=== PATIENT | female | born 1965 | race Caucasian/White ===

== ENCOUNTER → 2018-06-24 12:58 | Outpatient (CLI) | payer OTHER, SELFPAY ==
--- NOTE | 2018-06-24 | DI.MG.S_ITS ---
BILATERAL DIGITAL SCREENING MAMMOGRAM 3D/2D WITH CAD: 06/24/2018 CLINICAL: Routine screening. Comparison is made to exams dated: 05/20/2017 mammogram - [facility] and 05/29/2016 mammogram - [facility]. The tissue of both breasts is extremely dense, which lowers the sensitivity of mammography. Current study was also evaluated with a Computer Aided Detection (CAD) system. There are benign calcifications in both breasts. There also is a benign biopsy clip in the left breast. No significant masses, calcifications, or other findings are seen in either breast. There has been no significant interval change. IMPRESSION: There is no mammographic evidence of malignancy. A 1 year screening mammogram is recommended. This exam was interpreted at Station ID: [id number]. NOTE: For mammograms, a report in lay terms will be sent to the patient. Approximately 15% of breast malignancies will not be visualized mammographically. In the management of a palpable breast mass, a negative mammogram must not discourage biopsy of a clinically suspicious lesion. Electronically Signed By: Alexandre owen/franklyn:06/24/2018 16:20:47 letter sent: Normal Exam ACR BI-RADS Category 2: Benign Finding(s) 3342F
== END ==
PROVIDERS: PCP Family Medicine; Visit Provider Family Medicine
DX: Z12.31 Encounter for screening mammogram for malignant neoplasm of breast (principal)
CPT/HCPCS: 77063; 77067

== ENCOUNTER → 2019-02-11 07:37 | Outpatient (CLI) | payer OTHER, SELFPAY ==
--- NOTE | 2019-02-11 | DI.RAD.S_ITS ---
PROCEDURE: XR KNEE LT 3V INDICATIONS: L KNEE PAIN TECHNIQUE: 3 views of the knee were acquired. COMPARISON: None. FINDINGS: Bones: No displaced acute fracture or dislocation is evident involving the osseous structures of the left knee. There is a bony prominence evident along the inferior margin of the patella with sclerosis at the border between this structure and the inferior border of the patella, which may be related to previous injury or represent a prominent enthesophyte or potentially represent an unusual bipartite patella. This is felt to be chronic. There is also a bony prominence evident along the periphery of the distal medial femoral metaphysis. Soft tissues: No joint effusion. No suspicious soft tissue calcifications. IMPRESSION: 1. No acute fractures of the left knee. 2. Bony structure along the inferior margin of the patella could be a potential source for pain. The need for further evaluation utilizing MRI. 3. Possible osteochondroma of the distal medial femoral metaphysis. MRI with contrast is recommended for further evaluation. Dictated by: Jose Martins M.D. on 02/11/2019 at 7:28 Approved by: Jose Martins M.D. on 02/11/2019 at 7:31
== END ==
PROVIDERS: PCP Family Medicine; Visit Provider Physician Assistant Medical
DX: M25.562 Pain in left knee (principal); M23.52 Chronic instability of knee, left knee
CPT/HCPCS: 73562

== ENCOUNTER → 2019-03-15 07:58 | Outpatient (CLI) | payer OTHER, SELFPAY ==
--- NOTE | 2019-03-15 | DI.MRI.S_ITS ---
PROCEDURE: MR KNEE LT WO CON INDICATIONS: Pain in left knee TECHNIQUE: Noncontrast sagittal PD fast spin echo and T2 fast spin echo with fat saturation, sagittal 3-D FLASH with fat saturation; coronal T1 spin echo and PD fast spin echo with fat saturation, and axial PD fast spin echo with fat saturation through the knee. COMPARISON: None. FINDINGS: Image quality: Excellent. Menisci: The medial and lateral menisci demonstrate normal morphology and internal signal. The meniscal root ligaments appear intact. Cruciate ligaments: The anterior and posterior cruciate ligaments appear intact. Medial structures: The medial collateral ligament appears intact. However, there is adjacent soft tissue edema. Semimembranosus tendon appears intact. However there is a large amount of adjacent fluid suggestive of bursitis Visualized portions of the pes anserinus tendons appear normal. No abnormal bursal fluid. Lateral structures: The lateral collateral ligament demonstrates thickening and intrasubstance signal change in keeping with low grade sprain, statistically chronic, although technically age indeterminate. The biceps femoris tendon appears intact. Popliteus tendon grossly unremarkable. Iliotibial band appears intact. Anterior structures: Quadriceps tendon intact. Medial and lateral patellofemoral ligaments intact. There is mild patellar tendinopathy. Prepatellar and superficial infrapatellar subcutaneous edema/fluid. Chronic osseous fragmentation at the inferior patellar pole, potentially from prior remote fracture and or chronic patellar tendinopathy Bones and cartilage: No focal marrow contusion or discrete low signal fracture line. Within the medial compartment, diffuse partial-thickness loss of the femoral and tibial cartilage without focal defect. Within the lateral compartment, articular cartilage appears grossly intact Within the patellofemoral compartment, diffuse partial-thickness loss of the patellar and femoral trochlear cartilage Joint space: No pathologic joint effusion. No Interiano's cyst. No specific evidence of intra-articular loose body. IMPRESSION: Low-grade medial collateral ligament sprain. Semimembranosus bursitis. Patellar tendinopathy with chronic osseous fragmentation at the infrapatellar pole suggestive of prior remote fracture versus chronic sequela of Sinding Mendez-Johannson syndrome. Joint degeneration, most prominent within the medial and patellofemoral compartments Dictated by: Boby Dawkins M.D. on 03/15/2019 at 11:11 Approved by: Boby Dawkins M.D. on 03/15/2019 at 11:19
== END ==
PROVIDERS: Family Provider Family Medicine; PCP Family Medicine; Visit Provider Physician Assistant Medical
DX: M25.562 Pain in left knee (principal); S83.412A Sprain of medial collateral ligament of left knee, initial encounter; M17.12 Unilateral primary osteoarthritis, left knee; M71.562 Other bursitis, not elsewhere classified, left knee
CPT/HCPCS: 73721

== ENCOUNTER → 2019-07-15 09:09 | Outpatient (CLI) | payer OTHER, SELFPAY ==
--- NOTE | 2019-07-15 | DI.MG.S_ITS ---
BILATERAL DIGITAL SCREENING MAMMOGRAM 3D/2D WITH CAD: 07/15/2019 CLINICAL: Routine screening. Comparison is made to exams dated: 06/24/2018 mammogram, 05/20/2017 mammogram - [facility], and 05/29/2016 mammogram - [facility]. The tissue of both breasts is extremely dense, which lowers the sensitivity of mammography. Current study was also evaluated with a Computer Aided Detection (CAD) system. There are benign calcifications in both breasts. There also is a biopsy clip in the left breast. No significant masses, calcifications, or other findings are seen in either breast. There has been no significant interval change. IMPRESSION: There is no mammographic evidence of malignancy. A 1 year screening mammogram is recommended. This exam was interpreted at Station ID: [id number]. NOTE: For mammograms, a report in lay terms will be sent to the patient. Approximately 15% of breast malignancies will not be visualized mammographically. In the management of a palpable breast mass, a negative mammogram must not discourage biopsy of a clinically suspicious lesion. Electronically Signed By: Alexandre owen/franklyn:07/17/2019 08:07:35 letter sent: Normal Exam ACR BI-RADS Category 2: Benign Finding(s) 3342F
== END ==
PROVIDERS: Family Provider Family Medicine; PCP Family Medicine; Referring Provider Family Medicine; Visit Provider Family Medicine
DX: Z12.31 Encounter for screening mammogram for malignant neoplasm of breast (principal)
CPT/HCPCS: 77063; 77067

== ENCOUNTER → 2020-08-01 08:06 | Outpatient (CLI) | payer OTHER, SELFPAY ==
--- NOTE | 2020-08-01 | DI.MG.S_ITS ---
BILATERAL DIGITAL SCREENING MAMMOGRAM 3D/2D WITH CAD: 08/01/2020 CLINICAL: Routine screening. Comparison is made to exams dated: 07/15/2019 mammogram, 06/24/2018 mammogram, and 05/20/2017 mammogram - [facility]. The tissue of both breasts is extremely dense, which lowers the sensitivity of mammography. Current study was also evaluated with a Computer Aided Detection (CAD) system. There are benign calcifications in both breasts. There also is a biopsy clip in the left breast. There is a mole marker on the left breast. No significant masses, calcifications, or other findings are seen in either breast. There has been no significant interval change. IMPRESSION: BENIGN There is no mammographic evidence of malignancy. A 1 year screening mammogram is recommended. This exam was interpreted at Station ID: [id number]. NOTE: For mammograms, a report in lay terms will be sent to the patient. Approximately 15% of breast malignancies will not be visualized mammographically. In the management of a palpable breast mass, a negative mammogram must not discourage biopsy of a clinically suspicious lesion. Electronically Signed By: Hung Acevedo acr/penrad:08/01/2020 09:09:00 letter sent: Normal Exam ACR BI-RADS Category 2: Benign Finding(s) 3342F
== END ==
PROVIDERS: Family Provider Family Medicine; PCP Family Medicine; Referring Provider Family Medicine; Visit Provider Family Medicine
DX: Z12.31 Encounter for screening mammogram for malignant neoplasm of breast (principal)
CPT/HCPCS: 77063; 77067

== ENCOUNTER → 2021-09-26 08:07 | Outpatient (CLI) | payer OTHER, SELFPAY ==
--- NOTE | 2021-09-26 | DI.MG.S_ITS ---
BILATERAL DIGITAL SCREENING MAMMOGRAM 3D/2D WITH CAD: 09/26/2021 CLINICAL: Routine screening. Comparison is made to exams dated: 08/01/2020 mammogram, 07/15/2019 mammogram, and 06/24/2018 mammogram - [facility]. The tissue of both breasts is extremely dense, which lowers the sensitivity of mammography. Current study was also evaluated with a Computer Aided Detection (CAD) system. There are benign calcifications in both breasts. There also is a biopsy clip in the left breast. There is a mole marker on the left breast. No significant masses, calcifications, or other findings are seen in either breast. There has been no significant interval change. IMPRESSION: BENIGN There is no mammographic evidence of malignancy. A 1 year screening mammogram is recommended. This exam was interpreted at Station ID: [id number]. NOTE: For mammograms, a report in lay terms will be sent to the patient. Approximately 15% of breast malignancies will not be visualized mammographically. In the management of a palpable breast mass, a negative mammogram must not discourage biopsy of a clinically suspicious lesion. Electronically Signed By: Prem lux/franklyn:09/26/2021 09:43:20 letter sent: Normal Exam ACR BI-RADS Category 2: Benign Finding(s) 3342F
== END ==
PROVIDERS: Family Provider Family Medicine; PCP Family Medicine; Referring Provider Family Medicine; Visit Provider Family Medicine
DX: Z12.31 Encounter for screening mammogram for malignant neoplasm of breast (principal)
CPT/HCPCS: 77063; 77067

== ENCOUNTER → 2022-10-10 07:51 | Outpatient (CLI) | payer OTHER, SELFPAY ==
--- NOTE | 2022-10-10 07:55 | DI.MG.S_ITS ---
BILATERAL DIGITAL SCREENING MAMMOGRAM 3D/2D WITH CAD: 10/10/2022 CLINICAL: Routine screening. Comparison is made to exams dated: 09/26/2021 mammogram, 08/01/2020 mammogram, and 07/15/2019 mammogram - [facility]. Both breasts are extremely dense, which lowers the sensitivity of mammography (category d />75% glandular tissue). Current study was also evaluated with a Computer Aided Detection (CAD) system. There are benign calcifications in both breasts. There also is a biopsy clip in the left breast. No significant masses, calcifications, or other findings are seen in either breast. There has been no significant interval change. IMPRESSION: BENIGN There is no mammographic evidence of malignancy. A 1 year screening mammogram is recommended. Based on the Tyrer Cuzick model (a risk assessment model) the patient's lifetime risk is 17.6% and her 10 year risk is 6.3%. According to the ACR, ACS, and NCCN guidelines, an annual breast MRI exam along with mammogram is recommended if the patient's lifetime risk is 20% or greater. This exam was interpreted at Station ID: [id number]. NOTE: For mammograms, a report in lay terms will be sent to the patient. Approximately 15% of breast malignancies will not be visualized mammographically. In the management of a palpable breast mass, a negative mammogram must not discourage biopsy of a clinically suspicious lesion. Electronically Signed By: Alexandre owen/franklyn:10/12/2022 07:48:12 letter sent: Normal Exam ACR BI-RADS Category 2: Benign Finding(s) 3342F
--- NOTE | 2022-10-10 07:56 | DI.RAD.S_ITS ---
PROCEDURE: XR KNEE RT 3V INDICATIONS: RIGHT KNEE PAIN TECHNIQUE: 3 views of the knee were acquired. COMPARISON: [facility], CR, XR KNEE LT 3V, 02/11/2019, 7:41. FINDINGS: Bones: Moderate to severe patellofemoral compartment narrowing. Significant lateral patellar subluxation is present. Mild lateral and medial compartment narrowing. Small periarticular osteophytes are present most notably medially. Areas of calcification are noted overlying the joint space which may represent loose bodies. No discrete erosions. Soft tissues: Minimal joint effusion. No suspicious soft tissue calcifications. IMPRESSION: Tricompartmental arthritic change most severe in the patellofemoral compartment. Dictated by: Shikha Barton M.D. on 10/10/2022 at 9:00 Approved by: Shikha Barton M.D. on 10/10/2022 at 9:00
== END ==
PROVIDERS: Family Provider Family Medicine; PCP Family Medicine; Referring Provider Family Medicine; Visit Provider Family Medicine
DX: Z12.31 Encounter for screening mammogram for malignant neoplasm of breast (principal)
CPT/HCPCS: 73562; 77063; 77067

== ENCOUNTER → 2023-01-15 08:47 | Outpatient (CLI) | payer OTHER, SELFPAY ==
[2023-01-15 10:11] LABS: Appearance Urine UA CLEAR; Bilirubin Urine UA NEGATIVE (NEGATIVE); Color Urine UA YELLOW; Glucose Urine UA NEGATIVE (Negative); Ketones Urine UA NEGATIVE (NEGATIVE); Leukocyte Esterase Urine UA NEGATIVE (NEGATIVE); Nitrite Urine UA NEGATIVE (Negative); Occult Blood Urine UA NEGATIVE (Negative); Protein Urine UA NEGATIVE (Negative); Specific Gravity Urine UA <=1.005 (1.000-1.035); Urobilinogen Urine UA 0.2 E.U./dL (0.2); pH Urine UA 5.5 (4.5-8.0)
[2023-01-15 10:14] LABS: Bacteria Urine None Seen; Culture Indicated Urine Cult Not Indicated; RBC Urine None Seen (0-5/HPF); Squamous Epithelial Cell Urine None Seen (0-5/HPF); Urine Comments Microscopic Normal; WBC Urine None Seen (0-5/HPF)
[2023-01-15 10:16] LABS: Add Manual Diff / Slide Review NO; Basophils Absolute Auto 0 /uL (0-100); Basophils Percent Auto 0.6 % (0-2); Eosinophils Absolute Auto 100 /uL (0-450); Eosinophils Percent Auto 1.6 % (2-4); Hematocrit 39.9 % (36-46); Hemoglobin 13.9 g/dL (12.0-16.0); Lymphocytes Absolute Auto 2800 /uL (1100-4500); Lymphocytes Percent Auto 49.9 % (25-40); Mean Corpuscular HGB Conc 34.9 % (30-36); Mean Corpuscular Hemoglobin 31.1 PG (26-34); Mean Corpuscular Volume 89.2 fL (80-100); Monocytes Absolute Auto 400 /uL (0-900); Neutrophils Absolute Auto 2300 /uL (1500-7000); Neutrophils Percent Auto 40.9 % (50-75); Platelet Count 245 X10^3/uL (150-400); Red Blood Cell Count 4.47 X10^6/uL (4.0-5.2); Red Cell Distribution Width 12.8 % (11.6-14.8); White Blood Cell Count 5.7 X10^3/uL (4.5-11.0)
[2023-01-15 10:35] LABS: BUN Creatinine Ratio 13.9 (6-22); Blood Urea Nitrogen 10 mg/dL (7-17); Calcium 9.4 mg/dL (8.4-10.2); Carbon Dioxide 29 mmol/L (22-32); Chloride 102 mmol/L (98-107); Estimated Glomerular Filt Rate > 60 mL/min (>60); Glucose 85 mg/dL (70-100); HEMOLYSIS < 15 (0-50); Potassium 4.1 mmol/L (3.4-5.1); Sodium 138 mmol/L (137-145)
[2023-01-16 04:12] LABS: Labcorp Hemoglobin (Hb) A1c 5.4 % (4.8-5.6)
== END ==
PROVIDERS: Family Provider Family Medicine; PCP Family Medicine; Referring Provider Orthopaedic Surgery; Visit Provider Orthopaedic Surgery
DX: Z01.818 Encounter for other preprocedural examination (principal); Z01.812 Encounter for preprocedural laboratory examination; R73.9 Hyperglycemia, unspecified; N39.0 Urinary tract infection, site not specified
CPT/HCPCS: 36415; 80048; 81001; 83036; 85025; 93005; 93010; 94060; 94618; 94726; 94729

== ENCOUNTER → 2023-06-01 12:29 | Outpatient (CLI) | payer OTHER, SELFPAY ==
--- NOTE | 2023-06-01 | DI.US.S_ITS ---
PROCEDURE: US EXTREMITY NONVASC LOWER RT INDICATIONS: RIGHT POSTERIOR KNEE PAIN TECHNIQUE: Real-time scanning was performed of the right posterior knee , with image documentation. COMPARISON: None. Findings and impression: No discrete mass or fluid collections identified. Clinical followup is recommended. If there is new or worsening clinical concern, reimaging could be obtained, possibly with MRI. Possible incidental muscle spasms. Dictated by: Melquiades Oropeza M.D. on 06/01/2023 at 15:16 Approved by: Melquiades Oropeza M.D. on 06/01/2023 at 15:18
== END ==
PROVIDERS: Family Provider Family Medicine; PCP Family Medicine; Referring Provider Physician Assistant; Visit Provider Physician Assistant
DX: M25.561 Pain in right knee (principal)
CPT/HCPCS: 76882

== ENCOUNTER → 2023-08-05 10:26 | Outpatient (CLI) | payer OTHER, SELFPAY ==
--- NOTE | 2023-08-05 10:29 | DI.US.S_ITS ---
PROCEDURE: US PERIPH VENOUS LOW EXTREM RT INDICATIONS: KNEE PAIN TECHNIQUE: Real-time imaging, as well as color and pulse Doppler interrogation, were performed of the lower extremity deep veins from the inguinal ligament to the popliteal fossa, with documentation of the visualized calf veins. COMPARISON: None. FINDINGS: The common femoral, femoral, popliteal, and the visualized calf veins are normally compressible, and free of intraluminal thrombus. Color and pulse Doppler demonstrate normal phasic intraluminal flow. There is normal augmentation response to distal compression maneuver. There is an ill-defined 3.1 x 2.7 x 0.9 cm complex fluid collection within the right popliteal fossa suggesting the presence of a small Interiano's cyst. IMPRESSION: No findings of lower extremity deep venous thrombosis. Questionable small Interiano's cyst. Dictated by: Svitlana Alcantara M.D. on 08/05/2023 at 11:07 Approved by: Svitlana Alcantara M.D. on 08/05/2023 at 11:08
== END ==
PROVIDERS: Family Provider Family Medicine; PCP Family Medicine; Referring Provider Orthopaedic Surgery; Visit Provider Orthopaedic Surgery
DX: M25.561 Pain in right knee (principal)
CPT/HCPCS: 93971

== ENCOUNTER → 2023-09-08 10:09 | Outpatient (CLI) | payer OTHER, SELFPAY ==
--- NOTE | 2023-09-08 10:10 | DI.NM.S_ITS ---
PROCEDURE: NM BONE SCAN WHOLE BODY RADIOPHARMACEUTICAL: 20.5 mCi Tc-99m MDP IV. INDICATIONS: Presence of right artificial knee joint TECHNIQUE: Delayed regional bone scan was obtained centered to the knees. In addition, a whole-body scintigrams were obtained approximately 3-4 hours after intravenous injection of radiotracer. Anterior and posterior views were acquired from vertex to feet. COMPARISON: [facility], CR, XR KNEE RT 3V, 10/10/2022, 7:58. [facility], CR, XR KNEE STANDING BILATERAL, 11/17/2022, 10:10. [facility], CR, XR KNEE 4+ VIEWS RIGHT, 02/12/2023, 12:17. [facility], CR, XR KNEE 4+ VIEWS RIGHT, 08/11/2023, 15:40. FINDINGS: Comparison x-ray dated 08/11/2023 demonstrates right knee total arthroplasty. On regional bone scan centered to the knees, there is increased activity in right knee along the prosthesis-bone interface in the tibial component and in the area lateral aspect to the patella. In addition, a delayed whole-body bone scan is obtained. Question hyperostosis frontalis. No lesions are identified in sternum, clavicles, scapulae, ribs, bony pelvis, and visualized shafts of the long bones. There are foci of increased uptake in cervical, thoracic and lumbar spine most likely secondary to degenerative disc and facet disease; early metastasis to spine could be obscured by degenerative changes. There are foci of increased periarticular activity most pronounced in shoulders, left greater than right, and hips, compatible with degenerative/arthritic changes. IMPRESSION: 1. Right knee total arthroplasty. There is increased activity in right knee along the prosthesis-bone interface in the tibial compartment of the knee prosthesis and in the lateral aspect to the patella. Recommend clinical correlation for prosthesis loosening. 2. Degenerative/arthritic changes in spine and multiple peripheral joints. Dictated by: Grabiel Calzada M.D. on 09/08/2023 at 15:12 Approved by: Grabiel Calzada M.D. on 09/09/2023 at 8:01
== END ==
LOC: NUCM 10:09
PROVIDERS: Family Provider Family Medicine; PCP Family Medicine; Referring Provider Orthopaedic Surgery; Visit Provider Orthopaedic Surgery
DX: M25.461 Effusion, right knee (principal); Z96.651 Presence of right artificial knee joint
CPT/HCPCS: 78306; A9503